=== PATIENT | male | born 1985 | race Caucasian/White ===

== ENCOUNTER 2020-01-10 12:43 | Observation (INO) | payer OTHER, SELFPAY ==
[2020-01-10] VITALS (7 sets, daily range): BP systolic 112–154; BP diastolic 64–100; PULSE 80–129; RESP 15–22; TEMP 36.1–36.8; O2SAT 98–100; BMI 28.7; BMI 28.3
--- NOTE | 2020-01-10 12:53 | RAD_ITS ---
STUDY: X-RAY CHEST REASON FOR EXAM: Male, 34 years old. PT SWALLOWED A PLASTIC WRAPPER TECHNIQUE: Single AP portable view of the chest. COMPARISON: None. FINDINGS: There is no radiopaque foreign body seen. The lungs are clear and expanded. There is no demonstrated pleural abnormality. Normal size heart. Normal mediastinum and lynette. Normal visualized pulmonary arteries. Normal visualized aortic arch and descending thoracic aorta. Normal visualized thoracic spine. Normal visualized ribs, clavicles, and shoulders. There is no demonstrated abnormality of the visualized soft tissue structures of the upper abdomen. RAD/Chest 1 View (Portable) IMPRESSION: Normal x-ray examination of the chest. Electronically Signed: Ramon Chew MD at 13:36 EST , Service support ,
--- NOTE | 2020-01-10 12:53 | ED.VIS.GEN ---
History of Present Illness Chief Complaint: Foreign Body Informant: Patient Onset: Today Context: Sudden Onset - 20-30 min ago Timing: Continuous Quality: FB sens Location: throat/airway Current Severity: Moderate Maximum Severity: Moderate Worsened by: taking breath Relieved by: nothing. has been coughing. Associated Symptoms: feels mucous buildup; no sob. only throat discomfort, like FB sens Narrative: Patient states he was hunting and chewed the wrapper layer and examiner soft work of the end of a cigar he was about to smoke, and tried to blow it out of his mouth but it did not go anywhere and that he accidentally inhaled it. He feels like it is in his throat/airway, he does not have any chest symptoms at this time but coughing does not seem to change the foreign body sensation he is still having. Past Medical History - Allergies and Home Meds Allergies/Adverse Reactions: Allergies No Known Allergies Allergy (Verified 01/10/20 12:45) Primary Care Physician: NOT,DEFINED [NON-STAFF] - Past Medical History: None Surgical History: no surgical history Smoking Status: Current some day smoker Review of Systems General: Denies: Chills, Fever, Sweats Eyes: Denies: Visual changes - bilaterally, Diplopia ENT: Reports: - - see HPI. Denies: Bilateral ear pain, Rhinorrhea, Sore throat Cardiovascular: Denies: Chest pain, Palpitations Respiratory: Reports: Cough. Denies: Dyspnea, Sputum, Dyspnea on exertion Gastrointestinal: Denies: Abdominal pain, Nausea, Vomiting, Diarrhea, Melena, Hematochezia Genitourinary: Denies: Dysuria, Hematuria, Frequency Musculoskeletal: Denies: Back pain, Extremity Pain Skin: Denies: Rash, Wounds Neurological: Denies: Headache, Weakness, Numbness Physical Exam Vital Signs/Narrative: Vital Signs Temp Pulse Resp BP Pulse Ox 01/10/20 12:44 97 F L 129 H 22 H 154/100 H 99 Inital Vital Signs reviewed: Yes General: Well nourished, Well developed, No Acute Distress - speaking in full sentences, no hoarseness Head: Normocephalic, Atraumatic Eyes: Perrl, EOMI ENT: Moist mucous membranes, No rhinorrhea, - - throat normal-appearing. no trismus. +stridor present when pt takes deep inspiration, but not w/ regular tidal breaths. Neck: Supple, Nontender, No lymphadenopathy, - - trachea midline Cardiovascular: Regular rate, Regular rhythm, No murmurs, Tachycardia Respiratory: No distress, Chest nontender, Wheezing - bilat, equal; mostly clears when pt coughs.. Negative for: Rales, Rhonchi Abdomen: Soft, Nontender, Nondistended, Normal bowel sounds Extremities: Nontender, No edema Skin: Normal color, No Trauma Neurological: Alert, Oriented x3, Cranial nerves II-XII grossly intact, Normal Strength, Normal Sensation, Normal Gait Psychological: Normal affect, Normal Mood Diagnostic/Tx/Re-eval Clinical Impression(s) from Imaging Studies Chest X-Ray 01/10/20 12:53 IMPRESSION: Normal x-ray examination of the chest. Electronically Signed: Ramon Chew MD at 13:36 EST , Service support , - Medical Decision Making Chest x-ray showed nothing acute, no obvious asymmetry. Patient consented to nasolaryngoscopy here in the ER by myself, as there is no one available for otolaryngology today/this weekend. After anesthetizing with 3 cc of viscous 2% lidocaine through the right nostril, and Cetacaine spray in his posterior pharynx, I was able to successfully scope him but there was no visible foreign body. I saw down to the subglottic space. I discussed with Dr. Osman, since patient was still symptomatic, and he advises admitting the patient to the ICU and he will do bronchoscopy under control conditions. Procedures Procedure(s): Nasolaryngoscopy by ED physician. After local anesthesia as above, using the disposable flexible bronchoscope with the ED glide scope, I was able to successfully scope the patient and visualize the epiglottis, vallecula bilaterally, and the cords, in addition to inspecting the immediate subglottic space. There were minimal secretions, patient was tolerating them well, and the foreign body was not able to be visualized at all. After withdrawal of the scope, the patient still feels symptomatic and had some inspiratory wheezes especially in the right upper lobe, suspicious for aspiration into the trachea or right main bronchus. Other than minor bleeding and gagging on behalf of the patient, the patient tolerated well with no complications. ED Disposition - Plan for ED Patient: Disposition: Acute Care [facility] Diagnosis: Aspiration of foreign body Referrals: NOT,DEFINED [NON-STAFF] -
[2020-01-10] MEDS: Lidocaine 2% Jelly 1 APPLIC Tube TOPICAL (13:18)
--- NOTE | 2020-01-10 13:19 | ED.RN ---
1318 NASOPHARYNGEAL PROCEDURE STARTED
--- NOTE | 2020-01-10 13:48 | EKG12_ITS ---
Test Reason : Blood Pressure : / mmHG Vent. Rate : 079 BPM Atrial Rate : 079 BPM P-R Int : 146 ms QRS Dur : 086 ms QT Int : 372 ms P-R-T Axes : 054 062 048 degrees QTc Int : 426 ms Normal sinus rhythm with sinus arrhythmia Normal ECG Confirmed by REJI PATRICIA, AMOS ([id number]), television news video editor AVEL SCHULTZ ([id number]) on 01/12/2020 10:12:38 AM Referred By: CRISTHIAN Confirmed By:AMOS MENDOZA MD
--- NOTE | 2020-01-10 13:56 | ED.RN ---
NO OLD EKG
[2020-01-10 13:58] LABS: Absolute Lymphocyte Count 1.82 X10^3/uL (0.83-4.51); Absolute Neutrophil Count 2.5 X10^3/uL (2.0-7.7); Basophil# 0.03 X10^3/uL; Basophil% 0.6 % (0-1); Eosinophil# 0.23 X10^3/uL; Eosinophils% 4.7 % (0-5); Hematocrit 43.6 % (40-54); Hemoglobin 15.6 g/dL (13.0-16.5); Lymphocyte # 1.82 X10^3/ul (4.0); Lymphocyte % 36.8 % (19-41); Mean Corp Hgb Conc 35.8 g/dL (32-36); Mean Corpuscular Hgb 30.9 pg (27.0-32.0); Mean Corpuscular Volume 86.3 fL (80-94); Mean Platelet Vol. 10.7 fl (6.2-12.0); Monocyte# 0.36 X10^3/uL; Monocyte% 7.3 % (0-10); NRBC Flagged by Analyzer 0 % (0-5); Neutrophil # 2.49 X10^3/uL (2.7-7.7); Neutrophil % 50.4 % (47-70); Platelet Count 197 K/mm3 (150-450); RBC Distribution Width CV 12.3 % (11.6-14.6); RBC Distribution Width SD 38.6 fl (35.1-43.9); Red Blood Count 5.05 M/mm3 (4.6-6.2); White Blood Count 4.9 K/mm3 (4.4-11.0)
[2020-01-10 14:03] LABS: Anion Gap 6 (5-15); BUN 13 mg/dL (7-18); BUN/Creat Ratio 12.3 RATIO (10-20); Chloride 110 mmol/L (98-107); Creatinine, Serum 1.06 mg/dL (0.70-1.30); EST Glomerular Filtration Rate 85 mL/min (>60); Est Glom Filt Rate - Afr Amer 103 mL/min (>60); Estimated Creatinine Clearance 102.35 ml/min; Glucose 105 mg/dL (74-106); Potassium 3.2 mmol/L (3.5-5.1); Sodium Level 142 mmol/L (136-145)
--- NOTE | 2020-01-10 14:30 | PCM.HP.STD ---
History of Present Illness Date of Admission: 01/10/20 Chief Complaint: Cigar wrap inhalation The patient is a 34 year old M with no medical problems came to ER after he accidentally inhaled) cigar. Patient chewed the cigarette and filter chief inspector off and in order to throw out he accidentally inhaled it. He still has sensation of foreign body in throat. ER physician did nasopharyngoscopy and looked up to the level of vocal cords and did not see FB. Patient complain of wheezing. No shortness of breath. Patient had mild cough when he inhaled. In ED, triage vitals shows heart rate 129, blood pressure 154/100 but most recent in normal limit. No hypoxia or tachypnea. Chest x-ray is done and looks normal. Patient is further admitted for airway monitoring and bronchoscopy removal of FB. [] Past Medical History Allergies No Known Allergies Allergy (Verified 01/10/20 12:45) Home Medications: Ambulatory Orders Medication Instructions Recorded NK 01/10/20 Surgical History: no surgical history Smoking Status: Light Smoker (<10/day) Tobacco Use: Cigars - *Family History Paternal History Items: No pertinent history - Of cardiac or lung disease in parents. Review of Systems Constitutional: Denies: Chills, Fever, Weight Change HEENT: Denies: Head Aches, Sinus Congestion, Sinus Drainage Cardiovascular: Denies: Chest Pain, Palpitations Respiratory: Reports: Cough, Wheezing. Denies: Shortness of Breath, Shortness of breath at rest, Sputum production Gastrointestinal: Denies: Abdominal Pain, Nausea, Vomiting Genitourinary: Denies: Dysuria Musculoskeletal: Denies: Joint Pain, Joint Tenderness Skin: Denies: Rash, Wounds Neurological: Denies: Numbness, Tingling, Focal weakness Psychiatric: Denies: Anxiety, Depression, Homicidal Ideations, Suicidal Ideations Hematologic/ Lymphatic: Denies: Easy Bruising, Easy Bleeding VTE Information - Inpt Only VTE Present on Admission: No VTE Mechan Device Prophylaxis: None VTE Pharm Prophylaxis ordered?: No Reason prophylaxis not ordered:: Procedure Not Indicated Patient Problems: Active and Suspected Problems Aspiration of foreign body (Acute) - Physical Exam Vitals/I&O's: Vital Signs Temp Pulse Resp BP Pulse Ox 97 F L 94 18 131/82 H 100 01/10/20 12:44 01/10/20 14:00 01/10/20 14:00 01/10/20 14:00 01/10/20 14:00 Oxygen Delivery Method Room Air Weight: 200 lb Body Mass Index (BMI) 28.7 General: Alert, Oriented x3, Cooperative HEENT: Atraumatic, PERRLA, EOMI, Normocephalic Oral: No Gingival or Mucosal Lesions/ Ulcerations, Dry Mucosa, - - No foreign body seen on deep oropharyngeal exam Neck: Supple, No JVD, Negative Carotid Bruits Lungs: Clear to auscultation, Normal air movement, No rhonchi, No wheeze, No rales, Wheezes - Fine wheezing at the end of inspiration but not significantly or grossly abnormal Cardiovascular: Regular rate, Regular Rhythm, Normal S1, Normal S2, No murmurs Abdomen: Bowel Sounds Present, Soft, Non Tender, Non-Distended Extremities: No edema, Capillary Refill Less than 3 Seconds Skin: No rashes, No breakdown Musculoskeletal: No Tenderness to Palpation of Joints or Extremities Neurological: Cranial nerves II-XII grossly intact, Deep Tendon Reflexes 2+/4 and Symmetrical, Neuro grossly intact, Motor Exam 5/5 strength throughout Psych/Mental Status: Normal Affect, Appropriate Laboratory Results 01/10/20 13:00: WBC 4.9, RBC 5.05, Hgb 15.6, Hct 43.6, MCV 86.3, MCH 30.9, MCHC 35.8, RDW Std Deviation 38.6, RDW Coeff of Nona 12.3, Plt Count 197, MPV 10.7, Immature Gran % (Auto) 0.200, Neut % (Auto) 50.4, Lymph % (Auto) 36.8, Mariposa % (Auto) 7.3, Eos % (Auto) 4.7, Baso % (Auto) 0.6, Absolute Neuts (auto) 2.5, Absolute Lymphs (auto) 1.82, Nucleated RBC % 0 01/10/20 13:00: Sodium 142, Potassium 3.2 L, Chloride 110 H, Carbon Dioxide 26.0, Anion Gap 6, BUN 13, Creatinine 1.06, Estim Creat Clear Calc 102.35, Est GFR (MDRD) Af Amer 103, Est GFR (MDRD) Non-Af 85, BUN/Creatinine Ratio 12.3, Glucose 105, Calcium 9.0 Assessment/Plan All Active Problems Aspiration of foreign body (Acute) The patient is a 34 year old M with no medical problems came to ER after he accidentally inhaled cigarette and filter chief inspector. In ED, triage vitals shows heart rate 129, blood pressure 154/100 but most recent in normal limit. No hypoxia or tachypnea. Chest x-ray is done and is normal. [] 1. Accidental inhalation of foreign body/piece of cigarette and filter chief inspector: Patient is being admitted in PCU for airway monitoring. Discussed with dance instructor. Patient is stable with no respiratory distress or hypoxia and blood pressure is stable. Plan for bronchoscopy tomorrow a.m. 2. Mild hypokalemia: K3.2. serum magnesium ordered. Potassium is being replaced. EKG shows normal sinus rhythm at 79 bpm with sinus arrhythmia. 3. DVT prophylaxis: Low risk early ambulation encouraged. No prophylaxis indicated. Code Visit OBSV E&M: 55872 Initial observation care L3
[2020-01-10 14:48] LABS: Magnesium 1.7 mg/dL (1.6-2.6)
[2020-01-11 02:00] VITALS: PULSE 71
[2020-01-11 04:30] VITALS: PULSE 68
[2020-01-11 04:45] VITALS: PULSE 81; RESP 15; O2SAT 98
[2020-01-11 05:00] VITALS: BP 130/82; PULSE 81; RESP 15; TEMP 36.2; O2SAT 99
[2020-01-11 05:40] LABS: Platelet Count 211 K/mm3 (150-450)
[2020-01-11 05:59] LABS: Anion Gap 5 (5-15); BUN 11 mg/dL (7-18); BUN/Creat Ratio 11.8 RATIO (10-20); Calcium,Total 9.1 mg/dL (8.5-10.1); Chloride 110 mmol/L (98-107); Creatinine, Serum 0.94 mg/dL (0.70-1.30); EST Glomerular Filtration Rate 99 mL/min (>60); Est Glom Filt Rate - Afr Amer 119 mL/min (>60); Estimated Creatinine Clearance 115.41 ml/min; Glucose 102 mg/dL (74-106); Potassium 4.4 mmol/L (3.5-5.1); Sodium Level 142 mmol/L (136-145)
--- NOTE | 2020-01-11 06:03 | NURSING ---
AM ASSESSMENT & VITALS DONE. PT GOT UP TO THE BATHROOM AND CAME OUT AND SAID I JUST EXPELLED THE PLASTIC WRAP FOREIGN BODY. A SMALL PIECE OF WRAP WAS IN HIS HAND. PT REPORTS THAT ALL OF IT IS OUT OF HIS AIRWAY. DR WALSH PAGED AND MADE AWARE. ENDO NURSE MADE AWARE. DR WALSH WILL SEE PT ON PCU.
[2020-01-11 06:12] LABS: Prothrombin Time (Protime)PT. 13.4 SECONDS (11.7-14.9)
[2020-01-11 06:13] LABS: Partial Thromboplast Time 29.5 Seconds (24.1-36.2)
--- NOTE | 2020-01-11 06:19 | CON.PCM_ITS ---
Reason for Consult Date of Consultation: 01/11/20 Reason for Consultation: Foreign body aspiration History of Present Illness: The patient is a 34-year-old male, with a history as outlined below, who presented to the emergency department on December with complaints of a foreign body aspiration. The patient was apparently out rabbit hunting yesterday when he attempted to open a cigar, which was wrapped in plastic. The patient used his mouth to open the plastic off of the end of the cigarette making machine hopper feeder and then subsequently aspirated the small piece of plastic into his airway. The patient has no known history of any lung disease. He does not routinely consume tobacco products, outside of when he goes hunting. The patient did report that upon aspirating the plastic that he could hear a wheezing sensation on deep inspiration. On presentation to the emergency department, the patient was afebrile and hemodynamically stable. Laboratory evaluation was unremarkable. Plain film chest x-ray was clear. Flexible nasolaryngoscopy was performed in the emergency department which showed normal anatomic structures without foreign body. Therefore, I was contacted to evaluate the patient for potential bronchoscopy and foreign body retrieval. The patient was subsequently admitted to the [facility] care unit for overnight observation with plans to perform bronchoscopy this morning. I was contacted by nursing staff early this morning after the patient got up to use the restroom and apparently coughed a great deal. During this episode, the patient expectorated the small piece of plastic that he previously was noted to have aspirated. I evaluated the patient at the bedside and he was in no form of respiratory distress. He was speaking in complete sentences without complaints of shortness of breath or further wheezing. Past Medical History Allergies No Known Allergies Allergy (Verified 01/10/20 12:45) Home Medications: Ambulatory Orders Medication Instructions Recorded NK 01/10/20 Surgical History: no surgical history Smoking Status: Light Smoker (<10/day) Tobacco Use: Cigars - *Family History Paternal History Items: No pertinent history - Of cardiac or lung disease in parents. Review of Systems Constitutional: Denies: Chills, Fever Eyes: Denies: Blurred vision, Double vision HEENT: Denies: Head Aches, Sinus Congestion, Sinus Drainage Cardiovascular: Denies: Chest Pain, Palpitations Respiratory: Reports: Wheezing. Denies: Shortness of Breath Gastrointestinal: Denies: Abdominal Pain, Nausea, Vomiting Genitourinary: Denies: Dysuria Musculoskeletal: Denies: Joint Pain, Joint Tenderness Skin: Denies: Rash, Wounds Neurological: Denies: Numbness, Tingling, Focal weakness Psychiatric: Denies: Anxiety, Depression, Homicidal Ideations, Suicidal Ideations Hematologic/ Lymphatic: Denies: Easy Bruising, Easy Bleeding Patient Problems: Active and Suspected Problems Aspiration of foreign body (Acute) Objective: The patient's most recent lab work, culture data and imaging studies have all been personally reviewed. - Physical Exam Vitals/I&O's: Vital Signs Temp Pulse Resp BP Pulse Ox 97.1 F L 81 15 130/82 H 99 01/11/20 05:00 01/11/20 05:00 01/11/20 05:00 01/11/20 05:00 01/11/20 05:00 Oxygen Delivery Method Room Air Weight: 197 lb Body Mass Index (BMI) 28.3 Intake and Output for Last 24 Hours 01/09/20 01/10/20 01/11/20 23:59 23:59 23:59 Intake Total 240 / 390 150 / 150 Balance 240 / 390 150 / 150 General: Alert, Oriented x3, Cooperative, No apparent distress HEENT: Atraumatic, PERRLA, Normocephalic Oral: No Gingival or Mucosal Lesions/ Ulcerations Neck: Supple, No Nodes, Trachea Midline Lungs: Normal air movement, No rhonchi, No wheeze, No rales Cardiovascular: Regular rate, Regular Rhythm, Normal S1, Normal S2, No murmurs Abdomen: Bowel Sounds Present, Soft, Non Tender, Non-Distended Extremities: No clubbing, No cyanosis, No edema, Capillary Refill Less than 3 Seconds Skin: No rashes, No breakdown Musculoskeletal: No Tenderness to Palpation of Joints or Extremities, No Muscle Wasting Lymphatic: No Cervical, Supraclavicular, or Inguinal Adenopathy Neurological: Cranial nerves II-XII grossly intact, Neuro grossly intact Psych/Mental Status: Alert and oriented to time, place, person, mood and affect Labs (Last 48 Hours) 01/10/20 01/10/20 01/10/20 13:00 13:00 13:00 WBC 4.9 RBC 5.05 Hgb 15.6 Hct 43.6 MCV 86.3 MCH 30.9 MCHC 35.8 RDW Std Deviation 38.6 RDW Coeff of Nona 12.3 Plt Count 197 MPV 10.7 Immature Gran % (Auto) 0.200 Neut % (Auto) 50.4 Lymph % (Auto) 36.8 Crenshaw % (Auto) 7.3 Eos % (Auto) 4.7 Baso % (Auto) 0.6 Absolute Neuts (auto) 2.5 Absolute Lymphs (auto) 1.82 Nucleated RBC % 0 PT INR APTT Sodium 142 Potassium 3.2 L Chloride 110 H Carbon Dioxide 26.0 Anion Gap 6 BUN 13 Creatinine 1.06 Estim Creat Clear Calc 102.35 Est GFR (MDRD) Af Amer 103 Est GFR (MDRD) Non-Af 85 BUN/Creatinine Ratio 12.3 Glucose 105 Calcium 9.0 Magnesium 1.7 01/11/20 01/11/20 01/11/20 05:20 05:20 05:20 WBC RBC Hgb Hct MCV MCH MCHC RDW Std Deviation RDW Coeff of Nona Plt Count 211 MPV Immature Gran % (Auto) Neut % (Auto) Lymph % (Auto) Crenshaw % (Auto) Eos % (Auto) Baso % (Auto) Absolute Neuts (auto) Absolute Lymphs (auto) Nucleated RBC % PT 13.4 INR 1.0 APTT 29.5 Sodium 142 Potassium 4.4 Chloride 110 H Carbon Dioxide 27.0 Anion Gap 5 BUN 11 Creatinine 0.94 Estim Creat Clear Calc 115.41 Est GFR (MDRD) Af Amer 119 Est GFR (MDRD) Non-Af 99 BUN/Creatinine Ratio 11.8 Glucose 102 Calcium 9.1 Magnesium Clinical Impression(s) from Imaging Studies Chest X-Ray 01/10/20 12:53 IMPRESSION: Normal x-ray examination of the chest. Electronically Signed: Ramon Chew MD at 13:36 EST , Service support , Current Medications Acetaminophen (Tylenol) 650 mg PO Q6H PRN PRN PRN Reason: Pain Score 1-10/Temp > 100.7 F Albuterol Sulfate (Ventolin Aerosols) 2.5 mg INHALATION Q2H PRN PRN PRN Reason: sob/wheezing Morphine Sulfate () 2 mg IV Q3H PRN PRN PRN Reason: Pain Score 6-10/10 Ondansetron HCl (Zofran) 4 mg IV Q8H PRN PRN PRN Reason: NAUSEA/VOMITING Oxycodone HCl (Oxyir) 5 mg PO Q4H PRN PRN PRN Reason: Pain Score 4-5/10 Sodium Chloride () 10 - 40 ml IV UD PRN PRN Reason: SALINE FLUSH Assessment/Plan All Active Problems Aspiration of foreign body (Acute) RECOMMENDATIONS: 1. The patient is medically stable for discharge home, given that he has coughed up the foreign body previously aspirated. 2. Bronchoscopy will be canceled. 3. The patient has been advised that he can follow-up in the pulmonary medicine clinic should any issues arise in the future. IMPRESSIONS: 1. Unintentional foreign body aspiration The patient was noted yesterday to have aspirated a small piece of a plastic wrapper into his airway. The patient was in no form of respiratory distress and was subsequently admitted to the hospital for overnight observation, with plans for bronchoscopic airway evaluation and foreign body retrieval this morning. However, early this morning, the patient coughed a great deal and subsequently expectorated the small piece of plastic from his airway. Following this, the patient reported resolution of the previously noted wheezing. He is asymptomatic from a respiratory perspective. Therefore, there is no indication for bronchoscopy at this time. The procedure has been canceled. The patient is medically stable for discharge home. He has been advised that he can contact the pulmonary medicine office with any further concerns or questions. This note was generated with [employer] dictation software. It may contain incorrect words, spelling, and punctuation that were not noted in checking the note before signing. Code Visit Inpatient E&M: 86967 Init Hosp L2
--- NOTE | 2020-01-11 06:26 | NURSING ---
BRONCHOSCOPY CANCELLED. ENDO NURSE MADE AWARE
--- NOTE | 2020-01-11 08:46 | DCINST_ITS ---
- Discharge Diagnoses Current Active Problems: Current Active and Chronic Problems Aspiration of foreign body (Acute) You will use the following diet at home:: Regular Your food should be the consistency of: Regular Discharge Activity: Return to Normal Activity Weight Bearing Status: Weight bearing as tolerated Call your doctor if you observe: Fever of 101 or Higher, Inability to urinate, Inability to have a bowel movement, Shortness of breath, Fainting spells, Swelling in the ankles, Chest pain, Prolonged hiccoughing, Increased palpitations (irregular heartbeat), Uncontrolled pain Allergies/Adverse Reactions: Allergies No Known Allergies Allergy (Verified 01/10/20 12:45) Medications to take at Discharge NK 01/10/20 Primary Care Physician: NOT,DEFINED [NON-STAFF] - Please follow up with your Primary Care Physician in: F/U PCP in 4 weeks Test Results: Test results from this visit will be discussed in further detail at your follow- up appointment, if applicable.
--- NOTE | 2020-01-11 08:46 | PCM.DC.SUM ---
Discharge Date and Diagnosis Date of Admission: 01/10/20 Date of Discharge: 01/11/20 - Primary Discharge Diagnosis Active and Suspected Problems Aspiration of foreign body (Acute) Hospital Course and Treatment Summary of Care Provided: [] The patient is a 34 year old M with no medical problems came to ER after he accidentally inhaled hand cigar maker. In ED, triage vitals shows heart rate 129, blood pressure 154/100 but most recent in normal limit. No hypoxia or tachypnea. Chest x-ray was done and is normal. Was further admitted in PCU for airway monitoring. [] 1. Accidental inhalation of foreign body/piece of hand cigar maker: Patient was seen by sports centre manager. About half an hour before bronchoscopy patient coughed out plastic of cigarette wrapper who had aspirated before. Bronchoscopy was canceled. Patient was discharged 2. Mild hypokalemia: K3.2. Repeat potassium 4.4. Mag 1.7. EKG shows normal sinus rhythm at 79 bpm with sinus arrhythmia. 3. DVT prophylaxis: Low risk early ambulation encouraged. No prophylaxis indicated. Discharge medication reconciliation done. Discharge follow-up instructions completed. Discharge process discussed with the patient and all questions were answered to patient's satisfaction. Total time spent, exact 30 minutes on discharge meds reconciliation, examination, coordination of care with nurses and ancillary staff, review of imaging and blood test and discussion with the patient on follow-up instructions Objective: Patient coughed out plastic of hand cigar maker in the morning half an hour before the bronchoscopy. - Physical Exam Vitals/I&O's: Vital Signs Temp Pulse Resp BP Pulse Ox 97.1 F L 81 15 130/82 H 99 01/11/20 05:00 01/11/20 05:00 01/11/20 05:00 01/11/20 05:00 01/11/20 05:00 Oxygen Delivery Method Room Air Weight: 197 lb Body Mass Index (BMI) 28.3 Intake and Output for Last 24 Hours 01/09/20 01/10/20 01/11/20 23:59 23:59 23:59 Intake Total 240 / 390 150 / 150 Balance 240 / 390 150 / 150 General: Alert, Oriented x3, Cooperative HEENT: Atraumatic, PERRLA, EOMI, Normocephalic Neck: Supple, No JVD, Negative Carotid Bruits Lungs: Clear to auscultation, Normal air movement, No rhonchi, No wheeze, No rales Cardiovascular: Regular rate, Regular Rhythm, Normal S1, Normal S2, No murmurs Abdomen: Bowel Sounds Present, Soft, Non Tender, Non-Distended Extremities: No edema, Capillary Refill Less than 3 Seconds Skin: No rashes, No breakdown Musculoskeletal: No Tenderness to Palpation of Joints or Extremities Neurological: Cranial nerves II-XII grossly intact, Deep Tendon Reflexes 2+/4 and Symmetrical, Neuro grossly intact, Motor Exam 5/5 strength throughout Psych/Mental Status: Normal Affect, Appropriate Laboratory Results 01/10/20 13:00: WBC 4.9, RBC 5.05, Hgb 15.6, Hct 43.6, MCV 86.3, MCH 30.9, MCHC 35.8, RDW Std Deviation 38.6, RDW Coeff of Nona 12.3, Plt Count 197, MPV 10.7, Immature Gran % (Auto) 0.200, Neut % (Auto) 50.4, Lymph % (Auto) 36.8, [place] % (Auto) 7.3, Eos % (Auto) 4.7, Baso % (Auto) 0.6, Absolute Neuts (auto) 2.5, Absolute Lymphs (auto) 1.82, Nucleated RBC % 0 01/10/20 13:00: Sodium 142, Potassium 3.2 L, Chloride 110 H, Carbon Dioxide 26.0, Anion Gap 6, BUN 13, Creatinine 1.06, Estim Creat Clear Calc 102.35, Est GFR (MDRD) Af Amer 103, Est GFR (MDRD) Non-Af 85, BUN/Creatinine Ratio 12.3, Glucose 105, Calcium 9.0 01/10/20 13:00: Magnesium 1.7 01/11/20 05:20: Sodium 142, Potassium 4.4, Chloride 110 H, Carbon Dioxide 27.0, Anion Gap 5, BUN 11, Creatinine 0.94, Estim Creat Clear Calc 115.41, Est GFR (MDRD) Af Amer 119, Est GFR (MDRD) Non-Af 99, BUN/Creatinine Ratio 11.8, Glucose 102, Calcium 9.1 01/11/20 05:20: PT 13.4, INR 1.0, APTT 29.5 01/11/20 05:20: Plt Count 211 Current Medications Acetaminophen (Tylenol) 650 mg PO Q6H PRN PRN PRN Reason: Pain Score 1-10/Temp > 100.7 F Albuterol Sulfate (Ventolin Aerosols) 2.5 mg INHALATION Q2H PRN PRN PRN Reason: sob/wheezing Morphine Sulfate () 2 mg IV Q3H PRN PRN PRN Reason: Pain Score 6-10/10 Ondansetron HCl (Zofran) 4 mg IV Q8H PRN PRN PRN Reason: NAUSEA/VOMITING Oxycodone HCl (Oxyir) 5 mg PO Q4H PRN PRN PRN Reason: Pain Score 4-5/10 Sodium Chloride () 10 - 40 ml IV UD PRN PRN Reason: SALINE FLUSH Discharge Activity: Return to Normal Activity Weight Bearing Status: Weight bearing as tolerated Call your doctor if you observe: Fever of 101 or Higher, Inability to urinate, Inability to have a bowel movement, Shortness of breath, Fainting spells, Swelling in the ankles, Chest pain, Prolonged hiccoughing, Increased palpitations (irregular heartbeat), Uncontrolled pain Home Medications: Medications to take at Discharge NK 01/10/20 Primary Care Physician: NOT,DEFINED [NON-STAFF] - Please follow up with your Primary Care Physician in: F/U PCP in 4 weeks Medical Necessity - Tobacco Use Smoking Status: Light Smoker (<10/day) Tobacco Use: Cigars Meaningful Use Info Meaningful Use Diagnoses (Choose all that apply): None applicable Code Visit Inpatient E&M: 69997 Disch Hosp
[2020-01-11 09:16] VITALS: BP 130/82; PULSE 81; RESP 15; TEMP 36.2; O2SAT 99
== END 2020-01-11 08:46 | disposition home or self-care (01) ==
LOC: ED 13:51 → PCU 16:41
PROVIDERS: Student in an Organized Health Care Education/Training Program; Admitting Provider Internal Medicine; Emergency Provider Emergency Medicine; Visit Provider Internal Medicine
DX: T17.998A Other foreign object in respiratory tract, part unspecified causing other injury, initial encounter (principal); X58.XXXA Exposure to other specified factors, initial encounter; Y93.89 Activity, other specified; Y92.9 Unspecified place or not applicable; I49.8 Other specified cardiac arrhythmias; F17.290 Nicotine dependence, other tobacco product, uncomplicated; E87.6 Hypokalemia
CPT/HCPCS: 92511; 36415; 71045; 80048; 83735; 85025; 85049; 85610; 85730; 93005; 99218; 99284; A4216; G0378

== ENCOUNTER 2025-10-22 10:29 | Day surgery (SDC) | payer OTHER, SELFPAY ==
[2025-10-13 12:48] LABS: Hematocrit 43.0 % (40-54); Hemoglobin 15.4 g/dL (13.0-16.5); Immature Granulocytes Count 0.020 X10^3/uL (0.0-0.0); Mean Corp Hgb Conc 35.8 g/dL (32-36); Mean Corpuscular Volume 86.7 fL (80-94); Mean Platelet Vol. 10.2 fl (6.2-12.0); NRBC Flagged by Analyzer 0 % (0-5); Platelet Count 256 K/mm3 (150-450); RBC Distribution Width CV 12.2 % (11.6-14.6); RBC Distribution Width SD 38.7 fl (35.1-43.9); Red Blood Count 4.96 M/mm3 (4.6-6.2); White Blood Count 6.4 K/mm3 (4.4-11.0)
[2025-10-13 13:09] LABS: Anion Gap 9 (5-15); BUN 12 mg/dL (4-19); BUN/Creat Ratio 12.8 RATIO (10-20); Calcium,Total 9.8 mg/dL (7.6-11.0); Carbon Dioxide 26.7 mmol/L (21.0-32.0); Chloride 103 mmol/L (98-108); Glucose 86 mg/dL (70-99); Potassium 4.3 mmol/L (3.3-5.1)
[2025-10-22] VITALS (10 sets, daily range): BP systolic 98–148; BP diastolic 64–101; PULSE 66–92; RESP 16–18; TEMP 36.1–36.8; O2SAT 97–99; BMI 29.0
[2025-10-22] MEDS: Lactated Ringers 1,000 ML 15 ML IV (10:52)
--- NOTE | 2025-10-22 11:57 | PCM.PRE.AN2 ---
ASA Classification* ASA Classification ASA Classification: 1 Assessment & Plan Anesthesia* Anesthesia Assessment Anesthesia Assessment: Discussed sedation and/or anesthesia options, risks, benefits, and alternatives with patient/parents/legal guardian/POA. Questions invited. The patient/parents/legal guardian/POA seems to understand and agrees to proceed with anesthesia plan. Reviewed the physical assessment, medical history, allergy history and patient home medications list prior to surgery/procedure/anesthetic and documented any changes. Performed airway and anesthesia risk assessments. Anesthesia Type Anesthesia Type: General and Block (Patient is consented for interscalene block.) History Source History Obtained from:: Patient and Chart Anesthesia Focused Assessment* Temperature: 97.8 F Pulse Rate: 89 Blood Pressure: 141/101 Respiratory Rate: 18 Pulse Ox: 99 Oxygen Delivery Method: Room Air Airway Assessment Mouth opens: >3 cm Mallampati Score: I Teeth Condition: Implants (Tooth #11 is an implant. It is tight.) Neck Range of motion (ROM): Full ROM Labs Anesthesia Preop lab: CBC WBC, (4.4-11.0) 6.4 K/mm3 10/13/25, 12: RBC, (4.6-6.2) 4.96 M/mm3 10/13/25, 12: Hgb, (13.0-16.5) 15.4 g/dL 10/13/25, : Hct, (40-54) 43.0 % 10/13/25, 12: Plt Count, (150-450) 256 K/mm3 10/13/25, 12: CHEMISTRY Potassium, (3.3-5.1) 4.3 mmol/L 10/13/25, 12: Sodium, (133-145) 139 mmol/L 10/13/25, 12: Magnesium, (1.6-2.6) 1.7 mg/dL 01/10/20, 13:00 BUN, (4-19) 12 mg/dL 10/13/25, 12: Creatinine, (0.70-1.20) 0.90 mg/dL 10/13/25, 12: Glucose, (70-99) 86 mg/dL 10/13/25, 12: COAG PT, (11.7-14.9) 13.4 SECONDS 01/11/20, 05:20 Pre-Assessment Diagnosis/Proposed Procedure Planned Operative Procedure(s): (R) RIGHT SHOULDER ARTHROSCOPIC ROTATOR CUFF REPAIR, SUBACROMIAL DECOMPRESSION, DISTAL CLAVICLE EXCISION Anesthesia History 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 When Was Last Pacemaker Check QUESTION #4 FULL TEXT: You/Your Family Experience fever (hyperthermia) with Anesthesia Last Oral Intake Last Oral intake: Last Oral Intake NPO since 05:30 10/22/25 10:43 Meds taken in AM with sips of No 10/22/25 10:43 water? Meds patient instructed to take am of surgery Any additional information?: Yes NPO since: 05:30 (Patient had black coffee at 5:30 AM.) Meds taken in AM with sips of water?: No PONV PONV - electric knife operator: PONV - electric knife operator Female No 10/14/25 09:00 HX of Motion Sickness No 10/14/25 09:00 HX of N/V After Surgery No 10/14/25 09:00 Non-Smoker No 10/14/25 09:00 Duration of Surgery greater Yes 10/14/25 09:00 than 60 minutes Number of Risk Factors 1 10/14/25 09:00 PONV Score Low Risk 10/14/25 09:00 Height & Weight Height & Weight: Anesthesia: Height & Weight Height 5 ft 10 in 10/22/25 10:43 Weight: 92 kg 10/22/25 10:43 Body Mass Index (BMI) 29.0 10/22/25 10:43 Respiratory Assessment Respiratory Assessment - electric knife operator: Respiratory Tract Infection Hx - electric knife operator Hx Respiratory Tract Infection No 10/14/25 09:00 STOP Sleep Apnea STOP Sleep Apnea - electric knife operator: STOP Sleep Apnea - electric knife operator Hx Hypertension No 10/14/25 09:00 Hx Sleep Apnea No 10/14/25 09:00 CPAP BIPAP Do you snore loudly (louder No 10/14/25 09:00 than talking or can be heard Do you often feel tired/ No 10/14/25 09:00 fatigued/ sleepy during daytime? Has anyone observed you stop No 10/14/25 09:00 breathing during sleep? STOP Results Negative 10/14/25 09:00 QUESTION #5 FULL TEXT : Do you snore loudly (louder than talking or can be heard through closed doors)? 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 Specify any problems Hx of Preganancy in last 3 N/A 10/14/25 09:00 Months Nurse Filling Out Transfusion NBUCHER 10/14/25 09:00 & Questions: Date: 10/14/25 10/14/25 09:00 Time: 09:02 10/14/25 09:00 Patient unable to answer at this time (ie. confused, unrespo /Reproduction History /Reproductive History - electric knife operator: /Reproductive Hx- electric knife operator Hx Now No 10/14/25 09:00 Gestational Age (in weeks): EDC: Hx Hx Para Hx Section SAB No 10/14/25 09:00 Does the father of the baby or his family experience fever w Father of the baby Malignant Hypertension history comment Active Medications Active Medications: Current Medications Generic Name Dose Route Start Last Admin Trade Name Freq PRN Reason Stop Dose Admin Lactated Ringer's 1,000 mls @ 15 mls/hr 10/22/25 11:00 10/22/25 10:52 IV 15 mls/hr .Q48H JOSIAS Administration PFSH Medical History Smoker Home Medications ?Medication ?Instructions ?Recorded ?Last Taken ?Type NK 01/10/20 Unknown History Allergy/AdvReac Type Severity Reaction Status Date / Time No Known Allergies Allergy Verified 10/22/25 10:42 no significant family history Surgical History History of vasectomy (09/22/25) no surgical history Social History Smoking Status: Light Smoker (<10/day) Review of Systems (Anesthesia) ROS Narrative System reviewed and no additional complaints, except as documented.
[2025-10-22] MEDS: Midazolam 2 MG/2 ML Syringe IV (12:17)
[2025-10-22] MEDS: Cefazolin 1 GM/5 ML Vial 2 GM IV (12:30)
[2025-10-22] MEDS: Lidocaine 1% (5 ml sdv) 5 ML Vial 8 ML IV (12:35)
[2025-10-22] MEDS: Epinephrine (1 mg/ml) 1 MG/ML VIAL (12:56)
--- NOTE | 2025-10-22 14:13 | PCM.POST.ANE ---
Anesthesia: Postop Eval I Current Vital Signs Temperature: 97.3 F Pulse Rate: 92 Blood Pressure: 148/96 Respiratory Rate: 16 Pulse Ox: 98 Oxygen Delivery Method: Room Air Assessment Airway patent: Yes Spontaneous unlabored respirations: Yes Mental status: Asleep nausea: No Vomiting: No Anesthesia Complication: No Fluid Hydration Crystalloid volume administer (ml): 1,000 Total IV fluid infused: 1,000 Progress Note Anesthesia document: Postop Eval 1 completed: Yes
--- NOTE | 2025-10-22 17:35 | PCM.OPRPT ---
Operative Report (Standard) Operative Information Date of Procedure: 10/22/25 Pre-Operative Diagnosis: 1. Right shoulder rotator cuff tear 2. Right shoulder subacromial impingement syndrome 3. Right shoulder acromioclavicular joint osteoarthritis Post-Operative Diagnosis: 1. Right shoulder rotator cuff tear 2. Right shoulder subacromial impingement syndrome 3. Right shoulder acromioclavicular joint osteoarthritis Surgery/Procedure Performed: 1. Right shoulder arthroscopic rotator cuff repair 2. Right shoulder arthroscopic subacromial decompression 3. Right shoulder arthroscopic distal clavicle excision peer financial counselor: Yes Data Architect Manager: Anne Marie Christianson Tasks completed by certified surgical tech/first assistant: Opening & closing, Implanting device and Retracting Additional service assistant?: No Type of Anesthesia: General/Regional RN Documented Start/Stop Times: Operation Date: 10/22/25 12:30 Case Time Into Pre-Op 10/22/25 10:41 Anesthesia Start 10/22/25 12:30 Into Room 10/22/25 12:30 Out of Pre-Op 10/22/25 12:30 Procedure Start 10/22/25 12:56 Procedure End 10/22/25 14:02 Anesthesia End 10/22/25 14:08 Out of Room 10/22/25 14:08 Into Recovery 10/22/25 14:10 Into Phase II Recovery 10/22/25 14:41 Out of Recovery 10/22/25 14:41 Out of Phase II 10/22/25 15:20 Procedure Start Time: 12:56 Procedure Stop Time: 14:02 Select all DRAINS/GRAFTS/IMPLANTS that apply: Implanted device Implanted device details: Arthrex triple loaded fiber tack anchor Estimated Blood Loss: 5 cc Specimen collected: No Description of surgery: Patient was identified in preoperative holding area by name, medical record number, and date of . The operative extremity was marked. All questions were answered to the patient's satisfaction. An interscalene block was administered by anesthesia prior to the procedure. Patient was then brought to the operative suite at time of his procedure. He was positioned supine a sterile operating table. General anesthesia was induced and LMA was placed. Patient was then placed in lateral decubitus position with the right side up. A beanbag was used to hold the patient in the lateral decubitus position. An axillary roll was placed. Pillows were placed beneath and between his legs to for any bony prominences. We prepped and draped the right upper extremity in normal, sterile orthopedic fashion. The operative extremity was placed in traction utilizing arthroscopic bedroom with 15 pounds of tension applied to the operative extremity throughout the arthroscopic portion of the case. We performed a timeout with all parties in attendance in agreement with the side, site, and operation be performed. No concerns were voiced and we elected to proceed with surgery. 2 g Ancef was administered IV prior to incision by anesthesia staff. I first established a standard posterior portal 2 fingerbreadths inferior medial to the posterior lateral border of the scapular spine. Blunt tipped trocar and arthroscopic cannula was introduced into the glenohumeral joint. Joint was inflated with normal saline with epinephrine. Arthroscope was then introduced. Diagnostic arthroscopy was commenced. Synovitis was noted in the rotator interval. Anterior interval portal was established. Biceps was pristine and stable in its groove. Biceps anchor was stable. Minimal fraying at the superior labrum was noted. Focal chondromalacia was noted in the central portion of the glenoid with a small flap resected with a shaver. Full-thickness supraspinatus tear was noted with the bare footprint. There was no obvious retraction. No loose bodies were identified. The the articular side of the supraspinatus was debrided with a shaver. I withdrew the arthroscope. I reentered the shoulder in the subacromial space. Lateral portal was established. Rigid cannula was placed. Extensive bursitis was noted and this was resected with a shaver to expose the rotator cuff tear. There was significant remaining tendon stump at the supraspinatus footprint. Tear measured approximately 1 x 1 cm. This mobilized well without adhesions. Via percutaneous portal, a triple loaded fiber tack anchor was placed at the chondral margin of the greater tuberosity in the central portion of the tear. I then passed 2 of the suture tails in the anterior and posterior margins of the tear respectively for inverted mattress sutures. A single limb of the central suture was passed through the medial tear in the central portion and a scorpion suture passer was then used to pass the corresponding limb of suture through the tendon stump to compress across the tendon. Sutures were tensioned and tied. There is excellent reapproximation of rotator cuff to its robinson footprint and to the remaining tendon stump. Sutures were cut. Subacromial spur was identified after exposure with cautery. This was resected with a bur to a type I acromion. The AC joint was then exposed with release of the anterior and inferior joint capsule. 8 mm of distal clavicle resected with a bur in standard fashion.. The superior and posterior aspects of the joint capsule were left intact. The subacromial space was then thoroughly lavaged. I reentered the shoulder in the joint and ensured the biceps was not entrapped wire fixation. No tear was visualized and the capsule appeared to be appropriately reduced with repair of the rotator cuff. Arthroscopic instruments were removed. Portal sites were closed interrupted [id number] fashion with 3-0 nylon suture. Bulky sterile compression dressing was applied. Patient was placed in UltraSling. He was safely explained the operative suite and awakened from anesthesia. He tolerated the procedure well without apparent complication. Need for skilled service assistant: Anne Marie Christianson PA-C was critical to the outcome of the case. During the course of the procedure the physician service assistant played a vital role. Her intimate knowledge of my steps in the procedure aided in safe and expedient completion of the procedure. The PA played a vital role in positioning particularly in obtaining the appropriate positioning. The PA was also vital in the retraction of soft tissues during the exposure and protecting vital structures. The PA was also vital and obtaining tendon reduction and assisting with hardware placement. She also played a vital role in closure and sling application with my direct supervision. Postoperative plan: Patient be nonweightbearing operative extremity x 6 weeks. Follow-up in 2 weeks for suture removal. Ice to the operative shoulder. Sling x 6 weeks. Physical therapy to start in 2 weeks for typical rotator cuff repair protocol. Multimodal pain management with Tylenol, ibuprofen and oxycodone as prescribed. Aspirin 81 mg twice daily for DVT prophylaxis x 2 weeks. Surgical Findings: Full-thickness supraspinatus tear. Stable following fixation. Subacromial spur. AC joint arthrosis. Complications Complications: No Admit VTE Documentation VTE Present on Admission: No VTE Mechan Device Prophylaxis: SCD's VTE Pharm Prophylaxis ordered?: Yes
--- NOTE | 2025-10-22 21:05 | POSTOPAN2_ITS ---
Anesthesia Postop Eval I Sum Postop Eval Completion status Anesthesia document: Postop Eval 1 completed: Yes Anesthesia Postop Eval I Summary Anesthesia Postop Eval I Summary: Anesthesia Postop Eval I: Assessment Summary Airway patent Yes 10/22/25 14:13 PHYSICIAN COMPENSATION ANALYST.KANWALOBY Spontaneous unlabored Yes 10/22/25 14:13 PHYSICIAN COMPENSATION ANALYST.REJI respirations Mental status Asleep 10/22/25 14:13 PHYSICIAN COMPENSATION ANALYST.KANWALOBY nausea No 10/22/25 14:13 PHYSICIAN COMPENSATION ANALYST.KANWALOBAshley Vomiting No 10/22/25 14:13 PHYSICIAN COMPENSATION ANALYST.KANWALOBAshely Anesthesia Postop Eval I: Fluid Summary Crystalloid volume administer 1,000 10/22/25 14:13 PHYSICIAN COMPENSATION ANALYST.SKOBY (ml) Colloids volume administered ( ml) Blood Product volume administered (ml) Total IV fluid infused 1,000 10/22/25 14:13 PHYSICIAN COMPENSATION ANALYST.KANWALOBAshley Anesthesia Postop Eval I: Summary Notes Anesthesia Complication No 10/22/25 14:13 PHYSICIAN COMPENSATION ANALYST.REJI Anesthesia Complication Comment: Post-operative progress note Anesthesia: Postop Eval II Evaluation Mental status: Awake and Calm Pain Level: 1 nausea: No Vomiting: No Complications Anesthesia Complication: No
--- NOTE | 2025-10-22 21:05 | PCM.POSTANE2 ---
Anesthesia Postop Eval I Sum Postop Eval Completion status Anesthesia document: Postop Eval 1 completed: Yes Anesthesia Postop Eval I Summary Anesthesia Postop Eval I Summary: Anesthesia Postop Eval I: Assessment Summary Airway patent Yes 10/22/25 14:13 FIELD CONTROL INSPECTOR.KANWALOBY Spontaneous unlabored Yes 10/22/25 14:13 FIELD CONTROL INSPECTOR.REJI respirations Mental status Asleep 10/22/25 14:13 FIELD CONTROL INSPECTOR.KANWALOBY nausea No 10/22/25 14:13 FIELD CONTROL INSPECTOR.KANWALOBAshley Vomiting No 10/22/25 14:13 FIELD CONTROL INSPECTOR.KANWALOBAshley Anesthesia Postop Eval I: Fluid Summary Crystalloid volume administer 1,000 10/22/25 14:13 FIELD CONTROL INSPECTOR.SKOBY (ml) Colloids volume administered ( ml) Blood Product volume administered (ml) Total IV fluid infused 1,000 10/22/25 14:13 FIELD CONTROL INSPECTOR.KANWALOBAshley Anesthesia Postop Eval I: Summary Notes Anesthesia Complication No 10/22/25 14:13 FIELD CONTROL INSPECTOR.REJI Anesthesia Complication Comment: Post-operative progress note Anesthesia: Postop Eval II Evaluation Mental status: Awake and Calm Pain Level: 1 nausea: No Vomiting: No Complications Anesthesia Complication: No
== END 2025-10-22 15:33 | disposition home or self-care (01) ==
LOC: SDC 10:31 → AC 10:32
PROVIDERS: Referring Provider Student in an Organized Health Care Education/Training Program; Visit Provider Student in an Organized Health Care Education/Training Program
PROC: (CPT 29827; principal; 2025-10-22 12:10)
DX: M19.011 Primary osteoarthritis, right shoulder (principal); M75.41 Impingement syndrome of right shoulder; M75.101 Unspecified rotator cuff tear or rupture of right shoulder, not specified as traumatic; L65.8 Other specified nonscarring hair loss; Z98.52 Vasectomy status
CPT/HCPCS: 29824; 29826; 29827; 01630; 36415; 80048; 85025; C1713; J2405